=== PATIENT | female | born 1985 | race Two or more races ===

== ENCOUNTER 2018-02-02 03:51 | Emergency (ER) | payer MEDICAID ==
[~2018-02-02] VITALS: Ht 154.9 cm; Wt 80.3 kg
[2018-02-02 04:13] VITALS: BP 112/65
[2018-02-02] MEDS ORDERED: DEXAMETHASONE SOD PHOS 10MG/1ML VIAL INJ IM ONE (05:15)
[2018-02-02] MEDS ORDERED: cefTRIAXone SOD 1,000 MG VL IM ONE (05:15)
== END 2018-02-02 05:46 | disposition home or self-care (01) ==
LOC: EDBD 03:51 → ER 03:51
DX: J06.9 Acute upper respiratory infection, unspecified (principal)
CPT/HCPCS: 96372; 99284; J0696; J1100